=== PATIENT | female | born 1985 | race Two or more races ===

== ENCOUNTER 2025-03-27 16:38 | Emergency (ER) | payer MEDICAID, SELFPAY ==
[2025-03-27 16:39] VITALS: BMI 28.1
[2025-03-27 16:53] VITALS: BP 134/78; PULSE 100; RESP 18; TEMP 36.8; O2SAT 98
--- NOTE | 2025-03-27 17:04 | PD.EDRME ---
Rapid Medical Screening Exam E Arrival date/time: 03/27/25 16:38 39-year-old female with a history of a cholecystectomy presents to the emergency room with a chief complaint of bilateral upper abdominal pain x 2 weeks I have greeted and performed a focused initial assessment of this patient. A comprehensive ED assessment and evaluation of the patient, analysis of all test results, and completion of the medical decision making process will be conducted by additional ED providers. Chief Complaint: Abdominal Pain Vital signs: Vital Signs Temperature 98.2 F 03/27/25 16:53 Pulse Rate 100 03/27/25 16:53 Respiratory Rate 18 03/27/25 16:53 Blood Pressure 134/78 H 03/27/25 16:53 Pulse Oximetry (%) 98 03/27/25 16:53 Oxygen Delivery Method Room Air 03/27/25 16:53 Vital signs reviewed by provider: Yes Exam: 7 out of 10 abdominal pain to the epigastric area of her abdomen with palpation. Clinical Impression: Gastroenteritis/stomach ulcer/UTI
[2025-03-27 17:30] LABS: Basophils # (Auto) 0.1 Thou/mm3 (0.0-0.2); Basophils % (Auto) 0 % (0-2.5); Eosinophils # (Auto) 0.4 Thou/mm3 (0.0-0.5); Eosinophils % (Auto) 3 % (0-10); Hematocrit 32.1 % (36.0-46.0); Hemoglobin 10.7 g/dL (12.0-16.0); Immature Granulocytes Auto 0.09 Thou/mm3 (0.00-0.00); Lymphocytes # (Auto) 1.5 Thou/mm3 (1.0-4.8); Lymphocytes % (Auto) 9 % (10-50); Mean Corpuscular HGB Conc 33.3 g/dl (31.0-37.0); Mean Corpuscular Hemoglobin 29.1 pg (25.0-35.0); Mean Corpuscular Volume 87 fL (80-100); Monocytes # (Auto) 0.8 Thou/mm3 (0.0-0.8); Monocytes % (Auto) 5 % (0-12); Neutrophils # (Auto) 13.0 Thou/mm3 (1.8-7.7); Neutrophils % (Auto) 82 % (37-80); Nucleated Red Blood Cell # 0.00 Thou/mm3 (0.00-0.00); Nucleated Red Blood Cell % 0 /100 WBC (0); Platelet Count 490 Thou/mm3 (140-440); RDW Standard Deviation 40.3 fL (36.4-46.3); Red Blood Count 3.68 Miln/mm3 (4.00-5.20); White Blood Count 15.8 Thou/mm3 (3.6-11.0)
[2025-03-27 17:50] LABS: Alanine Aminotransferase 15 U/L (10-49); Albumin, Serum 4.7 gm/dL (3.5-5.0); Albumin/Globulin Ratio 2.0 (1.2-2.2); Alkaline Phosphatase 152 U/L (46-116); Anion Gap 14 (7-16); Aspartate Amino Transferase 17 U/L (0-34); BUN/Creatinine Ratio 18 Ratio (12-20); Bilirubin,Total 0.2 mg/dL (0.3-1.2); Blood Urea Nitrogen 14 mg/dL (9-23); Calcium 10.3 mg/dL (8.3-10.6); Calcium (Corrected) 10.3 mg/dL (8.5-10.1); Carbon Dioxide 24.7 mMol/L (20.0-31.0); Chloride 98 mMol/L (98-107); Creatinine (Component) 0.8 mg/dL (0.6-1.3); Estimated Creatinine Clearance 68.3 mL/min (>60); Globulin 2.3 gm/dL (2.3-3.5); Glucose 86 mg/dL (74-106); Lipase 22 U/L (12-53); Osmolality,Calculated 273 (275-295); Potassium 3.9 mMol/L (3.4-5.1); Sodium 137 mMol/L (136-145); Total Protein 7.0 gm/dL (5.7-8.2); eGFR > 60 See Note
[2025-03-27 18:54] LABS: Collection Type, Urine Clean Catch
[2025-03-27 19:00] LABS: HCG Qualitative,Urine Negative
[2025-03-27 19:01] LABS: Bilirubin,Urine Negative (Negative); Blood,Urine 3+ (Negative); Clarity,Urine Clear (Clear/Hazy); Color,Urine Lt-Yellow (Lt Yel-Yel); Glucose, Urine Negative (Negative); Hyaline Casts,Urine < 1 /hpf (0-1); Ketones,Urine 3+ (Negative); Leukocyte Esterase,Urine Negative (Negative); Nitrite,Urine Negative (Negative); PH,Urine 6.0 (5.0-7.0); Protein,Urine Trace (Neg - Trace); RBC,Urine 10 /hpf (0-3); Specific Gravity,Urine 1.023 (1.001-1.035); Squamous Epithelial Cell,Urine 2 /hpf (0-5); Urobilinogen,Urine Negative mg/dL (0.0-1.0); WBC,Urine 3 /hpf (0-5)
--- NOTE | 2025-03-27 21:41 | PD.EDABDPN ---
ED Abdominal Pain RME/HPI General Chief Complaint: Abdominal Pain Stated complaint: BILAT. UPPER ABD PAIN X2 WEEKS Time seen by provider: 03/27/25 22:19 Arrival date/time: 03/27/25 16:38 Source: patient and family [place] / HPI complaint: abdominal pain Onset (ago): week(s) (2) Consistency: intermittent Location: periumbilical Severity: moderate Severity scale (1-10): 3 Quality: cramping Radiation: none Migration to: no migration Relieving factors: nothing Exacerbating factors: eating Context: other (denies) Associated symptoms: nausea RME / HPI narrative: 03/27/25 16:38 39-year-old female with a history of a cholecystectomy presents to the emergency room with a chief complaint of bilateral upper abdominal pain x 2 weeks I have greeted and performed a focused initial assessment of this patient. A comprehensive ED assessment and evaluation of the patient, analysis of all test results, and completion of the medical decision making process will be conducted by additional ED providers. Exam: 7 out of 10 abdominal pain to the epigastric area of her abdomen with palpation. Impression: Gastroenteritis/stomach ulcer/UTI Related Data Previous Rx's ?Medication ?Instructions ?Recorded famotidine 40 mg tablet (Pepcid) 40 mg PO QDAY #30 tabs 03/27/25 Allergies Allergy/AdvReac Type Severity Reaction Status Date / Time ibuprofen AdvReac Intermediate Abdominal Verified 03/27/25 16:41 Pain Course Course Course Narrative: CT ordered Quality Measures none Orders Category Date Time Status CT Screening NOW Care 03/27/25 21:45 Active Insert IV NOW Care 03/27/25 21:[address] abdomen pelvis w con Stat Exams 03/27/25 21:45 Completed CBC Stat Lab 03/27/25 17:17 Completed CMP [Comprehensive Metabolic Panel] Stat Lab 03/27/25 17:17 Completed HCG Qualitative,Urine Stat Lab 03/27/25 18:42 Completed Lipase Stat Lab 03/27/25 17:17 Completed UA [Urinalysis] Stat Lab 03/27/25 18:42 Completed Urine Culture Stat Lab 03/27/25 18:42 Received Morphine* Inj Med 03/27/25 23:09 Discontinued 4 mg IVP X1 ONE Ondansetron Inj [Zofran Inj] Med 03/27/25 23:08 Discontinued 4 mg IVP X1 ONE Sodium Chloride 0.9% 1000 ml [Ns] 1,000 ml Med 03/27/25 21:47 Discontinued IV 999 mls/hr Vital Signs Vital signs: Vital Signs Temperature 98.2 F 03/27/25 16:53 Pulse Rate 100 03/27/25 16:53 Respiratory Rate 18 03/27/25 16:53 Blood Pressure 134/78 H 03/27/25 16:53 Pulse Oximetry (%) 98 03/27/25 16:53 Oxygen Delivery Method Room Air 03/27/25 16:53 Abdominal Pain MDM MDM Narrative MDM Narrative:: 39-year-old female coming in with abdominal pain on and off for 2 weeks. Worse with eating. Patient says is not in her right upper quadrant and not epigastric. Otherwise she is afebrile. Mildly elevated white count. Differential diagnosis includes Atypical presentation of appendicitis, possible gallbladder disease but doubt it, dehydration since her urinalysis shows that her specific gravity is elevated she has some ketones. Doubt DKA, diverticulitis. In emergency room the patient got A's CT scan to rule out intra-abdominal infection, otherwise she was treated with Toradol and is feeling much better. Patient data External records reviewed:: None Clinical information provided by:: patient Social determinants that could affect healthcare access:: none Patient has the following chronic illnesses:: None How is presenting disease/condition affected by chronic disease/condition?: uneffected by Evaluation data The following diagnostics were reviewed and interpreted by me:: lab results Lab and/or radiology exams considered but not ordered:: None Interpretation Summary: Elevated white count of 15,000. Hemoglobin 10/32 which is abnormal. Platelets 490. CBC is reviewed interpreted by me. Elevated white count. Mildly anemia. Otherwise electrolytes are normal. Alk phos is 152 with otherwise not obstructive picture. Patient with 3+ ketones in her urine and 3+ blood. 10 red blood cells. hCG is negative. No nitrates or leukocytes. No evidence of UTI. Medications / Prescriptions Medications or Prescriptions considered but not ordered:: None Medication administrations:: Medication Administration History Discontinued Medications Sodium Chloride (Ns) 1,000 mls @ 999 mls/hr IV .Q1H1M ONE Stop: 03/27/25 22:47 Last Infusion: 03/27/25 23:10 Dose: Infused Documented By: Admin: 03/27/25 21:53 Dose: 999 mls/hr Documented By: DB Morphine Sulfate (Morphine Sulf Inj 4 Mg/Ml Vial) 4 mg IVP X1 ONE Stop: 03/27/25 23:10 Ondansetron HCl (Ondansetron Inj 2 Mg/Ml Inj 2 Ml) 4 mg IVP X1 ONE; Protocol Stop: 03/27/25 23:09 As above Consultations Consultation(s) initiated? (list below): No Diagnosis Differential diagnosis abdominal pain: abdominal pain, acute appendicitis, calculus of kidney, constipation and diverticulitis Most likely diagnosis given after review of the tests above:: Gastritis, acute dehydration Admission Indicated Admission indicated?: not indicated Explain why admission is indicated or not indicated:: No bowel obstruction, no surgical indication for admission. Admission Request Was there a request for admission?: No Disposition Plan Disposition Plan: Discharge Discharge Attestation Discharge Attestation: The patient and all family members were given an opportunity to ask questions and understood the discharge instructions. Discharge instructions specifically effects, indications for sooner follow up or return to the emergency department, and the expected course of current diagnosis. Patient condition: Stable Discharge Plan Plan Patient Disposition: HOME (Self Care) Patient condition on transfer: Stable Prescriptions/Referrals Prescriptions/Med Rec: New famotidine [Pepcid] 40 mg tablet 40 mg PO QDAY Qty: 30 3RF Referrals: Yvette Muir [Primary Care Provider] - In 1 week Problem List Clinical Impression: Abdominal pain, Gastritis Patient/Caregiver Discharge Instructions Diet Instructions: Avoid citrus like foods since this could upset your stomach. That includes red sauces, alcohol, cigarette smoking, and coffee. Education Materials: Abdominal Pain, ED Dehydration (Adult), ED Gastritis (Adult) Additional Instructions: Today your CT scan does not show that you have an obstruction or anything surgical. You do have inflammation of the stomach. Will start you on a medication to help with that. However you will need to follow-up with your primary care physician to see if you need any additional test to figure out why you have inflammation of the stomach to include H. pylori. This test can be done at your primary care's office. Start the medication as prescribed since this will help with the gastritis. But this can take up to 2 weeks to work. You can take [id number] Maalox if needed for tablespoons twice a day for the next 1 week before meals. Print Language: Armenian Stand Alone Forms: [employer]., Patient Portal Info Letter
--- NOTE | 2025-03-27 21:45 | XR_ITS ---
Examination: CT abdomen with intravenous contrast CT pelvis with intravenous contrast 2-D coronal reconstructions 2-D sagittal reconstructions Date and time of exam: March 27, 2025, 10:10 p.m., comparison August 16, 2018 INDICATIONS: Abdominal pain today. And beginning 2 weeks ago CTDI: vol (mGy) 6.87 DLP: (mGycm) 344 Technique: Multiple axial sections of the abdomen and pelvis have been obtained. 64 slice high-resolution scanner used. 3 mm axial sections have been obtained, post intravenous injection 60 cc [id number] 2-D sagittal, coronal reconstructions obtained. Low dose protocols were performed. One or more of the following dose reduction techniques were used; automated exposure control, adjustment of the mA and/or KV according to patient size, use of iterative reconstruction technique. Findings: Significant mucosal thickening in the body and gastric antrum Retrocardiac gastric hernia No visualized liver or splenic lesion Absent gallbladder No pancreatic mass No renal or ureteral calculi, no hydronephrosis Aorta normal size Abundant stool throughout the colon No pericecal inflammatory change Mildly fluid distended small bowel loops in the upper abdomen Anteverted uterus Contracted urinary bladder Moderate disc narrowing L5-S1 IMPRESSION: Significant mucosal thickening in the body and gastric antrum, most consistent with gastritis, clinical correlation advised No renal or ureteral calculi, no hydronephrosis No CT findings of appendicitis bowel obstruction or diverticulitis Mild small bowel ileus
[2025-03-27] MEDS: SODIUM CHLORIDE 0.9% 1000 ML 1,000 ML 999 ML IV (21:53)
[2025-03-27] MEDS: MORPHINE SULF INJ 4 MG/ML VIAL IVP (23:21)
[2025-03-27] MEDS: ONDANSETRON INJ 2 MG/ML INJ 2 ML 4 MG IVP (23:22)
[2025-03-27 23:50] VITALS: BP 126/82; PULSE 96; RESP 17; TEMP 37.2; O2SAT 100
== END 2025-03-28 00:06 | disposition home or self-care (01) ==
PROVIDERS: Nurse Practitioner Family; Emergency Provider Emergency Medicine; PCP Physician Assistant
DX: K29.70 Gastritis, unspecified, without bleeding (principal)
CPT/HCPCS: 36415; 74177; 80053; 81001; 81025; 83690; 85025; 87086; 96361; 96374; 96375; 99283; A4649; J2270; J2405; J7030; Q9967

== ENCOUNTER → 2025-05-08 | Outpatient (CLI) | payer MEDICAID, SELFPAY ==
--- NOTE | 2025-05-08 15:02 | XR_ITS ---
Examination: Abdomen sonogram, complete Date and time of exam: May 08, 2025: 1518 hours INDICATIONS: Right upper abdominal pain beginning 1 month ago. Technique: Multiple real-time grayscale transabdominal sonographic images of the abdomen have been obtained. Findings: Absent gallbladder Normal common bile duct 0.3 cm Pancreatic head 2.4 cm Aorta not enlarged Liver 12.8 cm fatty infiltration Normal hepatopetal portal venous flow Patent IVC Right kidney 10.1 cm renal cortex 1.5 cm Left kidney 9.4 cm renal cortex 1.8 cm Mild renal scar formation Spleen 8.2 cm IMPRESSION: Normal common bile duct Liver normal size no focal liver lesions Bilateral renal cortical thinning Mild bilateral renal scar formation
== END | disposition home or self-care (01) ==
PROVIDERS: PCP Physician Assistant; Referring Provider Physician Assistant; Visit Provider Physician Assistant
DX: N28.89 Other specified disorders of kidney and ureter (principal)
CPT/HCPCS: 76700